=== PATIENT | male | born 1985 | race Caucasian/White ===

== ENCOUNTER 2020-01-09 05:29 | Observation (INO) ==
[2020-01-09] MEDS ORDERED: Haloperidol Lactate 5 MG/ML VIAL IM ONE (05:36)
[2020-01-09] MEDS ORDERED: *HR* LORazepam 2 MG/ML VIAL IM ONE (05:36)
[2020-01-09] MEDS ORDERED: Isovue-370 500 ML BOTTLE IVP ONE ×2 (05:54→07:54)
[2020-01-09 06:26] LABS: Amorphous Sediment,Urine Few per hpf (None-Few); Bacteria,Urine Few per hpf (None-Few); Bilirubin,Urine Negative (Negative); Blood,Urine Small (Negative); Clarity,Urine Turbid (Clear); Color,Urine Yellow (Yellow); Glucose,Urine (UA) Normal (Normal); Hyaline Casts,Urine Few per lpf (None Seen); Ketones,Urine Negative (Negative); Leukocyte Esterase,Urine Negative (Negative); Mucus,Urine Few per lpf (None-Few); Nitrite,Urine Negative (Negative); Protein,Urine 200 mg/dL (Neg-Trace); RBC,Urine 15-30 per hpf (0-3); Sperm,Urine Present (None Seen); Squamous Epithelial Cell,Urine Few per hpf (None-Few)
[2020-01-09 06:27] LABS: Basophils # 0.1 K/mcL (0.0-0.2); Basophils % 0.4 %; Eosinophils # 0.1 K/mcL (0.0-0.6); Eosinophils % 0.6 %; Hematocrit 33.5 % (37.5-50.1); Hemoglobin 10.7 g/dL (12.9-16.9); Immature Granulocytes % 0.5 % (0-4); Lymphocytes # 2.9 K/mcL (0.6-4.6); Lymphocytes % 22.3 %; Mean Corpuscular HGB Conc 31.9 g/dL (31.6-35.5); Mean Corpuscular Hemoglobin 29.6 pg (28.0-33.3); Mean Corpuscular Volume 92.8 fL (83.0-100.0); Mean Platelet Volume 9.6 fL (9.4-12.4); Monocytes # 0.7 K/mcL (0.0-1.3); Neutrophils # 9.4 K/mcL (1.6-8.9); Platelet Count 318 K/mcL (140-400); Red Blood Count 3.61 M/mcL (4.19-5.50); Red Cell Distribution Width 13.3 % (11.5-14.5); Segmented Neutrophils % 71.2 %; White Blood Count 13.1 K/mcL (4.3-11.1)
[2020-01-09 06:33] LABS: Amphetamine Screen,Urine Positive ng/mL (Cutoff=1000)
[2020-01-09 06:34] LABS: Barbiturate Screen,Urine Negative ng/mL (Cutoff=200)
[2020-01-09 06:35] LABS: Benzodiazepines Screen,Urine Negative ng/mL (Cutoff=300); Cannabinoid Screen,Urine Negative ng/mL (Cutoff = 50); Cocaine Screen,Urine Negative ng/mL (Cutoff= 300); Opiate Screen,Urine Negative ng/mL (Cutoff=300); Phencyclidine Screen,Urine Negative ng/mL (Cutoff=25)
[2020-01-09 06:47] LABS: Prothrombin Time 11.5 Seconds (9.4-12.1)
[2020-01-09 06:49] LABS: Acetaminophen < 10 mcg/mL (10-20); Activated Partial Thrombo Time 26.1 Seconds (26.0-36.0); Alanine Aminotransferase 51 Units/L (7-52); Albumin 3.7 g/dL (3.5-5.7); Albumin/Globulin Ratio 1.3 (1.1-2.2); Alkaline Phosphatase 82 Units/L (34-104); Aspartate Amino Transferase 61 Units/L (13-39); BUN/Creatinine Ratio 12 (6-26); Bilirubin,Direct 0.1 mg/dL (0.0-0.2); Bilirubin,Indirect 0.3 mg/dL (0.0-1.0); Bilirubin,Total 0.4 mg/dL (0.3-1.0); Blood Urea Nitrogen 12 mg/dL (6-20); Calcium 8.6 mg/dL (8.6-10.3); Carbon Dioxide 21 mEq/L (23-29); Chloride 107 mEq/L (98-107); Creatine Kinase 1100 Units/L (30-223); Ethanol < 10 mg/dL (Less than 10); Globulin 2.8 g/dL (2.4-3.5); Glucose 129 mg/dL (70-105); Osmolality,Calculated 289 (280-300); Potassium 3.6 mEq/L (3.5-5.1); Salicylate < 2.5 mg/dL (15.0-30.0); Sodium 139 mEq/L (136-145); Total Protein 6.5 g/dL (6.4-8.9); Troponin I < 0.03 ng/mL (< 0.04); eGFR For African Americans > 60 (> 60); eGFR For Non-African Americans > 60 (> 60)
[2020-01-09] MEDS ORDERED: 0.9 % Sodium Chloride 1,000 ML IVC ONE (06:52)
[2020-01-09] MEDS ORDERED: cefTRIAXone 1,000 MG in 0.9 % Sodium Chloride Mini Bag 100 ML IVPB ONE (07:55)
[2020-01-09] MEDS ORDERED: Azithromycin 500 MG in 0.9 % Sodium Chloride 250 ML IVPB ONE (07:56)
[2020-01-09] MEDS ORDERED: Clindamycin 900 MG/50 ML 900 MG/50 ML IV.SOLN IVPB ONE (07:56)
[2020-01-09] MEDS: 0.9 % Sodium Chloride 1,000 ML IVC ONE ×2 (07:58→10:04)
[2020-01-09] MEDS ORDERED: Ondansetron 4 MG/2 ML VIAL IVP PRN (08:37)
[2020-01-09] MEDS ORDERED: *HR* LORazepam 2 MG/ML VIAL IVP PRN (08:39)
[2020-01-09] MEDS ORDERED: Ringers Solution, Lactated 1,000 ML IVC SCH (08:45)
[2020-01-09] MEDS: Ringers Solution, Lactated 1,000 ML IVC SCH ×3 (10:46→22:27)
[2020-01-09] MEDS: *HR* Heparin 5,000 UNIT/ML VIAL SQ SCH (17:28)
[2020-01-09] MEDS: MetroNIDAZOLE 500 MG/100 ML 500 MG/100 ML BAG IVPB SCH ×2 (17:28→23:34)
[2020-01-09] MEDS: Gabapentin 400 MG CAPSULE PO SCH (20:03)
[2020-01-10 04:20] LABS: Basophils % 0.3 %; Eosinophils % 0.5 %; Hematocrit 34.4 % (37.5-50.1); Immature Granulocytes % 0.2 % (0-4); Lymphocytes # 1.8 K/mcL (0.6-4.6); Lymphocytes % 27.6 %; Mean Corpuscular Hemoglobin 29.6 pg (28.0-33.3); Mean Corpuscular Volume 92.5 fL (83.0-100.0); Mean Platelet Volume 9.8 fL (9.4-12.4); Monocytes # 0.5 K/mcL (0.0-1.3); Monocytes % 7.5 %; Neutrophils # 4.2 K/mcL (1.6-8.9); Platelet Count 273 K/mcL (140-400); Red Blood Count 3.72 M/mcL (4.19-5.50); Red Cell Distribution Width 13.6 % (11.5-14.5); Segmented Neutrophils % 63.9 %
[2020-01-10 04:21] LABS: White Blood Count 6.5 K/mcL (4.3-11.1)
[2020-01-10 04:40] LABS: BUN/Creatinine Ratio 15 (6-26); Blood Urea Nitrogen 10 mg/dL (6-20); Calcium 7.9 mg/dL (8.6-10.3); Carbon Dioxide 25 mEq/L (23-29); Chloride 107 mEq/L (98-107); Glucose 99 mg/dL (70-105); Osmolality,Calculated 287 (280-300); Potassium 3.7 mEq/L (3.5-5.1); Sodium 139 mEq/L (136-145); eGFR For African Americans > 60 (> 60); eGFR For Non-African Americans > 60 (> 60)
[2020-01-10] MEDS: *HR* Heparin 5,000 UNIT/ML VIAL SQ SCH ×2 (05:08→17:29)
[2020-01-10] MEDS: Ringers Solution, Lactated 1,000 ML IVC SCH (09:27)
[2020-01-10] MEDS: MetroNIDAZOLE 500 MG/100 ML 500 MG/100 ML BAG IVPB SCH (09:29)
[2020-01-10] MEDS: Gabapentin 400 MG CAPSULE PO SCH ×3 (09:30→19:34)
[2020-01-10] MEDS: levoFLOXacin 750 MG/150 ML 750 MG/150 ML BAG IVPB SCH (11:08)
[2020-01-10] MEDS: 0.9 % Sodium Chloride 1,000 ML IVC SCH (17:28)
[2020-01-11 03:13] LABS: Hematocrit 33.2 % (37.5-50.1); Hemoglobin 10.7 g/dL (12.9-16.9); Mean Corpuscular HGB Conc 32.2 g/dL (31.6-35.5); Mean Corpuscular Hemoglobin 29.7 pg (28.0-33.3); Mean Corpuscular Volume 92.2 fL (83.0-100.0); Mean Platelet Volume 9.1 fL (9.4-12.4); Platelet Count 262 K/mcL (140-400); Red Cell Distribution Width 13.6 % (11.5-14.5)
[2020-01-11 03:34] LABS: BUN/Creatinine Ratio 15 (6-26); Blood Urea Nitrogen 9 mg/dL (6-20); Carbon Dioxide 25 mEq/L (23-29); Chloride 108 mEq/L (98-107); Glucose 119 mg/dL (70-105); Osmolality,Calculated 286 (280-300); Potassium 3.9 mEq/L (3.5-5.1); Sodium 138 mEq/L (136-145); eGFR For African Americans > 60 (> 60); eGFR For Non-African Americans > 60 (> 60)
[2020-01-11] MEDS: 0.9 % Sodium Chloride 1,000 ML IVC SCH ×2 (05:24→15:35)
[2020-01-11] MEDS: *HR* Heparin 5,000 UNIT/ML VIAL SQ SCH ×2 (05:25→18:16)
[2020-01-11] MEDS ORDERED: NALOXONE HCL SL SCH (09:00)
[2020-01-11] MEDS ORDERED: [UNRECOGNIZED DRUG - OTHER] SL SCH (09:00)
[2020-01-11] MEDS ORDERED: BUPRENORPHINE HCL SL SCH (09:00)
[2020-01-11] MEDS: levoFLOXacin 750 MG/150 ML 750 MG/150 ML BAG IVPB SCH (09:38)
[2020-01-11] MEDS: Gabapentin 400 MG CAPSULE PO SCH ×3 (09:38→19:40)
[2020-01-11] MEDS ORDERED: *HR* Buprenorphine HCl 2 MG SUBLINGUAL TABLET SL SCH (12:30)
[2020-01-11] MEDS: *HR* Buprenorphine HCl 2 MG SUBLINGUAL TABLET SL SCH (13:02)
[2020-01-12] MEDS: 0.9 % Sodium Chloride 1,000 ML IVC SCH (01:39)
[2020-01-12] MEDS: *HR* Heparin 5,000 UNIT/ML VIAL SQ SCH (04:55)
[2020-01-12 06:42] VITALS: BP 126/71
[2020-01-12] MEDS ORDERED: levoFLOXacin 750 MG TABLET PO SCH (09:00)
[2020-01-12] MEDS: Gabapentin 400 MG CAPSULE PO SCH (09:03)
[2020-01-12] MEDS: *HR* Buprenorphine HCl 2 MG SUBLINGUAL TABLET SL SCH (09:03)
[2020-01-12 11:02] LABS: Hematocrit 37.5 % (37.5-50.1); Hemoglobin 11.9 g/dL (12.9-16.9); Mean Corpuscular HGB Conc 31.7 g/dL (31.6-35.5); Mean Corpuscular Hemoglobin 29.8 pg (28.0-33.3); Mean Corpuscular Volume 93.8 fL (83.0-100.0); Mean Platelet Volume 9.1 fL (9.4-12.4); Platelet Count 277 K/mcL (140-400); Red Cell Distribution Width 13.4 % (11.5-14.5); White Blood Count 5.3 K/mcL (4.3-11.1)
[2020-01-12 11:22] LABS: BUN/Creatinine Ratio 19 (6-26); Blood Urea Nitrogen 14 mg/dL (6-20); Calcium 8.4 mg/dL (8.6-10.3); Carbon Dioxide 24 mEq/L (23-29); Chloride 106 mEq/L (98-107); Creatine Kinase 189 Units/L (30-223); Glucose 112 mg/dL (70-105); Osmolality,Calculated 283 (280-300); Sodium 136 mEq/L (136-145); eGFR For African Americans > 60 (> 60); eGFR For Non-African Americans > 60 (> 60)
== END 2020-01-12 13:57 | disposition home or self-care (01) ==
LOC: EMEROOARM 05:29 → 2ANU 05:29
PROVIDERS: ADMIT Internal Medicine; ATTEND Internal Medicine

== ENCOUNTER 2020-10-28 21:03 | Inpatient (IN) ==
[2020-10-28] MEDS ORDERED: Ziprasidone 20 MG, Closed System Device IM Kit 1 EACH in Water for inj. (sterile) 1 ML IM PRN (21:18)
[2020-10-28] MEDS ORDERED: 0.9 % Sodium Chloride 1,000 ML IVC ONE (21:18)
[2020-10-28] MEDS ORDERED: Water for inj. (sterile) 10 ML ONE (21:45)
[2020-10-28] MEDS ORDERED: Ziprasidone 20 MG/VIAL VIAL IM ONE (21:45)
[2020-10-28 21:48] LABS: Basophils % 0.2 %; Eosinophils % 0.2 %; Hematocrit 41.5 % (37.5-50.1); Hemoglobin 14.6 g/dL (12.9-16.9); Immature Granulocytes % 0.4 % (0-4); Lymphocytes # 2.9 K/mcL (0.6-4.6); Lymphocytes % 20.5 %; Mean Corpuscular HGB Conc 35.2 g/dL (31.6-35.5); Mean Corpuscular Hemoglobin 31.1 pg (28.0-33.3); Mean Corpuscular Volume 88.3 fL (83.0-100.0); Monocytes # 0.7 K/mcL (0.0-1.3); Monocytes % 5.2 %; Neutrophils # 10.2 K/mcL (1.6-8.9); Platelet Count 253 K/mcL (140-400); Red Cell Distribution Width 11.9 % (11.5-14.5); Segmented Neutrophils % 73.5 %; White Blood Count 13.9 K/mcL (4.3-11.1)
[2020-10-28 22:10] LABS: Alanine Aminotransferase 86 Units/L (7-52); Albumin/Globulin Ratio 1.5 (1.1-2.2); Alkaline Phosphatase 69 Units/L (34-104); Aspartate Amino Transferase 214 Units/L (13-39); BUN/Creatinine Ratio 15 (6-26); Bilirubin,Direct 0.2 mg/dL (0.0-0.2); Bilirubin,Total 1.2 mg/dL (0.3-1.0); Blood Urea Nitrogen 24 mg/dL (6-20); Calcium 9.9 mg/dL (8.6-10.3); Carbon Dioxide 24 mEq/L (23-29); Chloride 103 mEq/L (98-107); Ethanol < 10 mg/dL (Less than 10); Globulin 3.4 g/dL (2.4-3.5); Glucose 69 mg/dL (70-105); Osmolality,Calculated 296 (280-300); Potassium 3.7 mEq/L (3.5-5.1); Sodium 142 mEq/L (136-145); Total Protein 8.4 g/dL (6.4-8.9); eGFR For African Americans > 60 (> 60); eGFR For Non-African Americans 50 (> 60)
[2020-10-29] MEDS ORDERED: 0.9 % Sodium Chloride 1,000 ML IVC ONE ×2 (00:57→00:58)
[2020-10-29 01:45] LABS: Acetaminophen < 10 mcg/mL (10-20)
[2020-10-29 01:56] LABS: Bilirubin,Urine Negative (Negative); Blood,Urine Large (Negative); Clarity,Urine Clear (Clear); Color,Urine Yellow (Yellow); Glucose,Urine (UA) Normal (Normal); Hyaline Casts,Urine Many per lpf (None Seen); Ketones,Urine 40 mg/dL (Negative); Leukocyte Esterase,Urine Negative (Negative); Mucus,Urine Few per lpf (None-Few); Nitrite,Urine Negative (Negative); PH,Urine 5.5 pH Units (5.0-8.0); Protein,Urine 100 mg/dL (Neg-Trace); RBC,Urine 0-3 per hpf (0-3); Specific Gravity,Urine > 1.030 (1.010-1.025); Squamous Epithelial Cell,Urine Few per hpf (None-Few); Urobilinogen,Urine Normal (Normal); WBC,Urine 0-3 per hpf (0-3)
[2020-10-29 02:12] LABS: Amphetamine Screen,Urine Positive ng/mL (Cutoff=1000); Barbiturate Screen,Urine Negative ng/mL (Cutoff=200); Benzodiazepines Screen,Urine Negative ng/mL (Cutoff=200); Cannabinoid Screen,Urine Negative ng/mL (Cutoff = 50); Cocaine Screen,Urine Positive ng/mL (Cutoff= 300); Opiate Screen,Urine Negative ng/mL (Cutoff=300); Phencyclidine Screen,Urine Negative ng/mL (Cutoff=25)
[2020-10-29] MEDS ORDERED: Naloxone 0.4 MG/ML INJ IVP PRN (02:17)
[2020-10-29] MEDS ORDERED: Acetaminophen 325 MG TABLET PO PRN (02:35)
[2020-10-29 03:11] LABS: Hematocrit 36.4 % (37.5-50.1); Immature Granulocytes % 0.4 % (0-4); Lymphocytes # 0.7 K/mcL (0.6-4.6); Lymphocytes % 7.7 %; Mean Corpuscular HGB Conc 33.8 g/dL (31.6-35.5); Mean Corpuscular Hemoglobin 30.8 pg (28.0-33.3); Mean Corpuscular Volume 91.2 fL (83.0-100.0); Mean Platelet Volume 10.3 fL (9.4-12.4); Monocytes # 0.4 K/mcL (0.0-1.3); Monocytes % 4.4 %; Neutrophils # 7.4 K/mcL (1.6-8.9); Platelet Count 162 K/mcL (140-400); Red Blood Count 3.99 M/mcL (4.19-5.50); Segmented Neutrophils % 87.5 %; White Blood Count 8.4 K/mcL (4.3-11.1)
[2020-10-29 03:26] LABS: Hemoglobin 12.3 g/dL (12.9-16.9)
[2020-10-29] MEDS: 0.9 % Sodium Chloride 1,000 ML IVC SCH ×2 (03:48→12:40)
[2020-10-29 03:58] LABS: BUN/Creatinine Ratio 25 (6-26); Blood Urea Nitrogen 28 mg/dL (6-20); Calcium 8.1 mg/dL (8.6-10.3); Carbon Dioxide 20 mEq/L (23-29); Chloride 105 mEq/L (98-107); Creatine Kinase 8643 Units/L (30-223); Glucose 99 mg/dL (70-105); Osmolality,Calculated 292 (280-300); Sodium 138 mEq/L (136-145); eGFR For African Americans > 60 (> 60); eGFR For Non-African Americans > 60 (> 60)
[2020-10-29 04:40] LABS: Adenovirus Not Detected (Not Detect); Coronavirus 229E Not Detected (Not Detect)
[2020-10-29 04:41] LABS: Bordetella Pertussis Not Detected (Not Detect); Chlamydophila pneumoniae Not Detected (Not Detect); Coronavirus HKU1 Not Detected (Not Detect); Coronavirus NL63 Not Detected (Not Detect); Coronavirus OC43 Not Detected (Not Detect); Human Metapneumovirus Not Detected (Not Detect); Human Rhinovirus/Enterovirus Not Detected (Not Detect); Influenza A Subtype 2009 H1 Not Detected (Not Detect); Influenza B Not Detected (Not Detect); Mycoplasma pneumoniae Not Detected (Not Detect); Parainfluenza Virus 1 Not Detected (Not Detect); Parainfluenza Virus 2 Not Detected (Not Detect); Parainfluenza Virus 3 Not Detected (Not Detect); Parainfluenza Virus 4 Not Detected (Not Detect); Respiratory Syncytial Virus Not Detected (Not Detect)
[2020-10-29 04:42] LABS: SARS-CoV-2 DETECTED (Not Detect)
[2020-10-29] MEDS ORDERED: Benzonatate 100 MG CAPSULE PO PRN (04:51)
[2020-10-29] MEDS ORDERED: Menthol 1 EACH LOZENGE PO PRN (04:51)
[2020-10-29] MEDS ORDERED: *HR* Heparin 5,000 UNIT/ML VIAL SQ SCH (06:00)
[2020-10-29] MEDS ORDERED: *HR* Enoxaparin 40 MG/0.4 ML SYRINGE SQ SCH (06:00)
[2020-10-29] MEDS ORDERED: Ipratropium 1 PUFF INHALER IH PRN (14:00)
[2020-10-29] MEDS ORDERED: Nicotine 2 MG GUM BC PRN (14:04)
[2020-10-29] MEDS ORDERED: *HR* LORazepam 0.5 MG TABLET PO PRN (14:04)
[2020-10-29 15:23] LABS: Hematocrit 36.1 % (37.5-50.1); Hemoglobin 12.1 g/dL (12.9-16.9)
[2020-10-29 15:24] LABS: VBG HCO3 21 mEq/L (21-27); VBG PCO2 35 mmHg (41-51); VBG PO2 65 mmHg (25-50)
[2020-10-29 15:25] VITALS: BP 107/65; PULSE 79; TEMP 97.9; O2SAT 98
[2020-10-29] MEDS: Calcium Gluconate 1gm/50mL 1 GM/50 ML BAG IVPB SCH ×2 (15:31→17:39)
[2020-10-30] MEDS ORDERED: Nicotine 14 MG PATCH.TD24 TD SCH (09:00)
[2020-10-30] MEDS ORDERED: Multivit/Ca/Min/Fe/FA 1 TAB TABLET PO SCH (09:00)
[2020-10-30] MEDS ORDERED: Cholecalciferol (D-3) 1,000 UNIT (25MCG) TABLET PO SCH (09:00)
== END 2020-10-29 18:46 | disposition left against medical advice (07) | DRG 469 ==
LOC: 3ANU 21:03 → EMEROOARM 21:03 → SUATTDRO 10-29 01:34 → 3ANU 10-29 02:17
PROVIDERS: ADMIT Internal Medicine; ATTEND Internal Medicine